=== PATIENT | female | born 1945 | race Caucasian/White ===

== ENCOUNTER 2021-05-27 09:50 | Emergency (ER) | payer MEDICARE, SELFPAY ==
--- NOTE | 2021-05-27 10:05 | PC.NURSE ---
PER DR PAUL TIME OF IS 10:02AM, FRAME RUNNER NOT NEEDED
--- NOTE | 2021-05-27 10:09 | ED.CPR ---
HPI - CPR General Chief Complaint: Cardiac Arrest/CPR Stated Complaint: CARDIAC ARREST Time Seen by Provider: 05/27/21 10:04 Source: EMS Mode of arrival: EMS Limitations: other (ongoing CPR) History of Present Illness MD complaint: found unresponsive Onset (ago): minute(s) (36+ with prehospital CPR per EMS) Timing confirmed by: family member Place: home Bystander CPR performed: No AED applied by bystander/sampler first: Yes Shock advised: No Initial findings in the field: unresponsive, no respirations, no pulse and PEA ROSC in the field: No Associated injuries: No Known history of: CAD Treatments prior to arrival: BMV, other airway device (chance), chest compressions and epinephrine mgs # (4) Related Data Allergies Allergy/AdvReac Type Severity Reaction Status Date / Time acetaminophen [From PERCOCET] Allergy Mild HIVES Unverified 11/03/19 14:53 oxycodone [From PERCOCET] Allergy Mild HIVES Unverified 11/03/19 14:53 Review of Systems Review of Systems: ROS unable to be obtained due to ongoing CPR [facility] Past Medical History Source: other (EMS) Medical History CAD (coronary artery disease) HTN (hypertension) Social History Social History (Updated 05/27/21 @ 10:18 by Sonal Bowden DO) Patient Tobacco Use Status: Tobacco use Unknown Physical Exam Vital Signs: Appearance: Ongoing CPR, unresponsive. Severe acute distress. Eyes: Fixed and dilated pupils ENT: Pharynx normal. Neck: Normal inspection. Neck supple. scar noted anterior neck CVS: absent heart sounds, no pulses, only pulses with chest compressions Respiratory: No spontaneous respirations Breath sounds equal with bagging Abdomen: atraumatic distended Skin: Skin cold and purple hue poor skin turgor. Extremities: No lower extremity edema. purple fingers and toes, mottled extremities Neuro: unresponsive, fixed and dilated pupils, no motor response to pain. Course Course Course Narrative: prolonged downtime > 40 minutes of CPR without ROSC PEA/asystole, 5+ epi given, fixed and dilated pupils, no organized activity on US, despite aggressive measures - patient at 1002am. Resuscitative efforts deemed futile with prolonged prehospital cardiac arrest notified, no concern for trauma/overdose - ME not notified. MDM - Cardiac Arrest/CPR MDM Narrative Medical decision making narrative: 76 yo female from home - EMS reports found unresponsive, apneic, pulseless 4+ epi, Chance airway, 36+ min of prehospital CPR, BS > 100 - hx of CAD, HTN will continue CPR efforts but has prolonged downtime prior to arrival and appearance on arrival for cyanosis, mottled appearance without ROSC in the field is concerning Procedures Procedure Narrative Procedure Narrative: 1002 bedside ECHO done asystole on the monitor no organized activity seen on US - valvular movement only Intubation Time out performed: Yes sedative: none Laryngoscope: other (glidescope 4 blade) ET Tube Size: 7.5 ET Tube Uncuffed: Yes Tube Secured Depth (cm): 21 Tube Secured Location: lips Tube Placement Confirmation: visualized tube passing through cords, equal breath sounds bilaterally, no breath sounds over epigastrium and confirmation by capnometry Patient Tolerated Procedure: well and no complications Intubation Complications: none Discharge Plan Discharge Clinical Impression: Cardiac arrest
[2021-05-27 10:29] LABS: Glucose, Whole Blood 177 mg/dL (60-115)
--- NOTE | 2021-05-27 10:50 | PC.NURSE ---
@ 10:35AM CALL PLACED TO DR LINDA CHINCHILLA OFFICE [phone], OPTION TO HAVE OFFICE CALL US BACK AFTER ON CONTINUOUSLY HOLD FOR 8 MINUTES @ 10:50AM CALL RETURNED FROM DR CHINCHILLA OFFICE TO CONFIRM THIS PT WAS STILL AN ACTIVE PT WITH THEIR OFFICE, MADE THEM AWARE OF THIS PT THIS MORNING @ 10:02
--- NOTE | 2021-05-27 10:55 | PC.NURSE ---
MULTIPLE FAMILY MEMBERS IN ROOM WITH PT @ THIS TIME
--- NOTE | 2021-05-27 11:03 | PC.NURSE ---
FAMILY AT BEDSIDE HOME UNDECIDED AT THIS TIME. BELONGINGS TAKEN BY FAMILY
== END 2021-05-27 13:43 | disposition expired ==
LOC: HO.ED 12:21
PROVIDERS: Emergency Provider Emergency Medicine; PCP Internal Medicine
DX: I46.9 Cardiac arrest, cause unspecified (principal); I10 Essential (primary) hypertension
CPT/HCPCS: 31500; 82947; 96374; 99282; 99285; J0171